=== PATIENT | male | born 1960 | race Caucasian/White ===

== ENCOUNTER 2017-02-21 08:00 | Day surgery (SDC) | payer OTHER ==
[2017-02-17 10:30] VITALS: BMI 30.8
[2017-02-21] MEDS ORDERED: PROPOFOL 20 ML ONE ×2 (08:06)
[2017-02-21] MEDS ORDERED: LIDOCAINE HCL/PF 2% SDV 5ML VIAL ONE (08:07)
[2017-02-21 08:44] VITALS: TEMP 97.5
[2017-02-21 10:21] VITALS: BP 133/88; PULSE 72
--- NOTE | 2017-02-23 11:45 | PATH ---
Surgical Pathology Report Patient Name: HAKAN REARDON [facility]. Rec. #: [id number] /Age/Gender: 1960 (Age: 56) / M Account: [id number] Location: [facility]-ENDOSCOPY Taken: 02/21/2017 Received: 02/22/2017 Reported: 02/23/2017 Physicians: Eduardo Hernandez M.D. Specimen(s) Received A: BX PROXIMAL RIGHT COLON B: BX DISTAL RIGHT COLON C: BX LEFT COLON Clinical History Preoperative diagnosis: Family history of colon cancer Postoperative diagnosis: Polyps Final Diagnosis A. PROXIMAL COLON, RIGHT, POLYPECTOMY: TUBULAR ADENOMA. B. DISTAL COLON, RIGHT, POLYPECTOMY: TUBULAR ADENOMA. C. COLON, LEFT, POLYPECTOMY: TUBULAR ADENOMA. NO HIGH GRADE DYSPLASIA IDENTIFIED. Electronically Signed Elis Wheatley M.D. Gross Description A. Received in formalin, labeled "proximal right colon" are 2 mercer, irregular portions of soft tissue averaging 0.2 cm. in greatest dimension. The specimens are submitted in toto in one cassette. B. Received in formalin, labeled "distal right colon" is a mercer, polypoid portion of soft tissue measuring 0.8 cm. in greatest dimension. The specimen is submitted in toto in one cassette. C. Received in formalin labeled "left colon," is a 1.1 x 0.8 x 0.5 cm mercer, polypoid portion of soft tissue. The specimen is bisected and entirely submitted in one cassette. DL/02/22/2017 saudi02/22/2017
== END 2017-02-21 10:13 | disposition home or self-care (01) ==
LOC: FASU-ENDO 08:00
PROVIDERS: ATTEND Internal Medicine Gastroenterology
PROC: 0DBM8ZX Excision of Descending Colon, Via Natural or Artificial Opening Endoscopic, Diagnostic (ICD-10-PCS; 2017-02-21)
PROC: 0DBK8ZX Excision of Ascending Colon, Via Natural or Artificial Opening Endoscopic, Diagnostic (ICD-10-PCS; principal; 2017-02-21 09:20)
PROC: 0DBL8ZX Excision of Transverse Colon, Via Natural or Artificial Opening Endoscopic, Diagnostic (ICD-10-PCS; 2017-02-21 09:20)
DX: Z12.11 Encounter for screening for malignant neoplasm of colon (principal); Z80.0 Family history of malignant neoplasm of digestive organs; K57.30 Diverticulosis of large intestine without perforation or abscess without bleeding; D12.2 Benign neoplasm of ascending colon; D12.4 Benign neoplasm of descending colon
CPT/HCPCS: 88305-TC

== ENCOUNTER 2019-04-11 07:51 | Day surgery (SDC) | payer OTHER ==
[2019-04-10 10:53] VITALS: BMI 30.8
[2019-04-11] MEDS ORDERED: PROPOFOL 20 ML ONE ×3 (09:24)
[2019-04-11] MEDS ORDERED: LIDOCAINE HCL/PF 2% SDV 5ML VIAL ONE (09:24)
[2019-04-11 10:10] VITALS: TEMP 97.8
[2019-04-11 10:20] VITALS: BP 121/71; PULSE 68
== END 2019-04-11 10:21 | disposition home or self-care (01) ==
LOC: FASU-ENDO 07:51
PROVIDERS: ATTEND Internal Medicine Gastroenterology
PROC: 0DJD8ZZ Inspection of Lower Intestinal Tract, Via Natural or Artificial Opening Endoscopic (ICD-10-PCS; principal; 2019-04-11 09:31)
DX: Z86.010 Personal history of colon polyps (principal); K57.30 Diverticulosis of large intestine without perforation or abscess without bleeding; Z80.0 Family history of malignant neoplasm of digestive organs